=== PATIENT | female | born 1975 ===

== ENCOUNTER 2017-04-24 18:03 | Emergency (ER) | payer OTHER ==
[2017-04-24 18:23] VITALS: RESP 18; TEMP 98.1
--- NOTE | 2017-04-24 18:55 | C.PDOC ---
History Of Present Illness 41 yr old female presents to the ER for evaluation of left heel pain, gradually developing for the past 3 days. Patient states the pain started after she slipped while walking. States the pain has worsened today and is localized. Patient denies leg pain, obvious deformity, weakness or numbness. Time Seen by Provider: 04/24/17 18:47 Chief Complaint (Nursing): Lower Extremity Problem/Injury History Per: Patient History/Exam Limitations: no limitations Onset/Duration Of Symptoms: Gradual (3 days) Current Symptoms Are (Timing): Still Present Past Medical History Reviewed: Historical Data, Nursing Documentation, Vital Signs Vital Signs: Last Vital Signs Temp 98.1 F 04/24/17 18:18 Pulse 78 04/24/17 18:18 Resp 18 04/24/17 18:18 BP 147/87 04/24/17 18:18 Pulse Ox 96 04/24/17 19:54 Family History: States: No Known Family Hx - Social History Hx Alcohol Use: No Hx Substance Use: No - Immunization History Hx Tetanus Toxoid Vaccination: No Hx Influenza Vaccination: No Hx Pneumococcal Vaccination: No Review Of Systems Except As Marked, All Systems Reviewed And Found Negative. Musculoskeletal: Positive for: Other ((+) Left heel pain.). Negative for: Leg Pain Neurological: Negative for: Weakness, Numbness Physical Exam - Physical Exam Appears: Well, Non-toxic, No Acute Distress Skin: Normal Color, Warm, No Rash, No Ecchymosis Extremity: Normal ROM (Left LE), Tenderness (tenderness over Left heel area, no edema, no erythema, no skin changes. FAROM of left foot and ankle, no neurovascular deficits.), No Calf Tenderness, Capillary Refill (less than 2sec to left foot), No Deformity, No Swelling Neurological/Psych: Oriented x3, Normal Speech, Normal Motor, Normal Sensation, Normal Reflexes ED Course And Treatment O2 Sat by Pulse Oximetry: 96 (RA) Pulse Ox Interpretation: Normal - Other Rad Left ankle X-Ray: Interpreted by Me, Viewed By Me Interpretation: (-) acute fx or dislocation Progress Note: On re-eval, pt is afebrile, hemodynamicaly stable. Non-toxic. Ambulatory in ED with stable gait. Left ankle/foot: exam c/w heel tenderness. No deformity, no skin changes. FAROM, no neurovascular deficits. xray review and appears normal. Pt advised. ref. to f/u with transfer table operator helper in 2-3 days for re -eavl. return if any new changes. Medical Decision Making Medical Decision Making: PLAN: * X-Ray - Left Ankle Disposition Counseled Patient/Family Regarding: Studies Performed, Diagnosis, Need For Followup, Rx Given - Disposition Referrals: [facility] [Outside] [facility] [Outside] Disposition: HOME/ ROUTINE Disposition Time: 18:55 Condition: STABLE Additional Instructions: Light duty to left foot left foot massage, change shoe daily Ibuprofen for pain Follow up with Aerosol Supervisor in 2-3 days for re-evaluation. Return to Ed if any worsening or new changes. Prescriptions: Ibuprofen [Motrin Tab] 600 mg PO Q6 #20 tab Instructions: Foot Sprain (ED) Forms: [employer] (Nauruan) Print Language: ESTONIAN - Clinical Impression Clinical Impression: Heel pain - PA / CHROME CLE[employer]ER / Resident Statement MD/DO has reviewed & agrees with the documentation as recorded. - Scribe Statement The provider has reviewed the documentation as recorded by the Scribe Louann Encarnacion All medical record entries made by the Scribe were at my direction and personally dictated by me. I have reviewed the chart and agree that the record accurately reflects my personal performance of the history, physical exam, medical decision making, and the department course for this patient. I have also personally directed, reviewed, and agree with the discharge instructions and disposition.
[2017-04-24 20:18] VITALS: BP 132/75; PULSE 75; O2SAT 98
--- NOTE | 2017-04-25 07:27 | RAD ---
PROCEDURE: Left Ankle Radiographs. HISTORY: trauma COMPARISON: None FINDINGS: BONES: No acute displaced fracture. Small calcaneal enthesophyte. JOINTS: No dislocation. SOFT TISSUES: Mild soft tissue swelling. No evidence of radiopaque foreign body. OTHER FINDINGS: None. IMPRESSION: Mild soft tissue swelling.
== END 2017-04-24 20:19 | disposition home or self-care (01) ==
LOC: C.ER 18:03
DX: M79.672 Pain in left foot (principal)

== ENCOUNTER 2018-07-22 10:40 | Outpatient (CLI) | payer OTHER | END 2018-07-22 10:41 | disposition home or self-care (01) | LOC: C.MAMMO 10:41 ==

== ENCOUNTER 2018-11-01 10:10 | Outpatient (CLI) | payer OTHER | END 2018-11-01 10:11 | disposition home or self-care (01) | LOC: C.USIC 10:10 | DX: E04.2 Nontoxic multinodular goiter (principal); E03.9 Hypothyroidism, unspecified ==